=== PATIENT | female | born 1990 | race Two or more races ===

== ENCOUNTER 2016-11-06 08:51 | Emergency (ER) | payer MEDICAID, OTHER ==
[~2016-11-06] VITALS: Ht 160 cm; Wt 58.5 kg
[2016-11-06 09:41] LABS: Urine Bilirubin Negative (Negative); Urine Color Yellow (Yellow); Urine Glucose Normal (Normal); Urine Ketone Negative (Negative); Urine Nitrite Negative (Negative); Urine RBC 8 /hpf (0 - 4); Urine Squamous Epithelial Cell FEW /hpf (<5); Urine Urobilinogen Normal (Negative)
[2016-11-06 09:42] LABS: Urine Blood 3+ /uL (Negative)
[2016-11-06 10:47] VITALS: BP 135/99
== END 2016-11-06 12:06 | disposition home or self-care (01) ==
LOC: ER 08:51
DX: O20.0 Threatened abortion (principal); Z3A.00 Weeks of gestation of pregnancy not specified
CPT/HCPCS: 36415; 81001; 84702

== ENCOUNTER 2016-11-08 06:34 | Emergency (ER) | payer MEDICAID ==
[~2016-11-08] VITALS: Ht 157.5 cm; Wt 58.5 kg
[2016-11-08 08:50] VITALS: BP 118/76
== END 2016-11-08 09:22 | disposition home or self-care (01) ==
LOC: ER 06:36
DX: Z76.1 Encounter for health supervision and care of foundling (principal); Z01.89 Encounter for other specified special examinations
CPT/HCPCS: 36415; 84702